=== PATIENT | male | born 1990 | race Caucasian/White ===

== ENCOUNTER → 2017-05-11 | Outpatient (REF) ==
--- NOTE | 2017-05-11 10:19 | RADIOLOGY IMAGING REPORT ---
FAC[place] [facility] [place]IENT NAME: Mason aGn : 1990 MR: [id number] V: [id number] EXAM DATE: ORDERING PHYSICIAN: NNEKA DE LA O TECHNOLOGIST: Location[place] [facility] [place] Patient: Mason Gan : 1990 Visit/Account:[id number] Date of Sevice: 05/11/2017 CHEST SINGLE AP INDICATION: Workplace physical COMPARISON: 07/28/2014 FINDINGS: Heart size within normal limits. There is no focal infiltrate or lobar consolidation. There is no pneumothorax or pleural effusion. IMPRESSION: 1. No acute cardiopulmonary process. Report Dictated By: Flex Arauz at 05/11/2017 10:14 AM Report E-Signed By: Flex Arauz at 05/11/2017 10:15 AM WSN:[id number]
== END ==
LOC: RAD 09:08
PROVIDERS: ATTEND Physician Assistant Medical
DX: Z02.9 Encounter for administrative examinations, unspecified (principal)
CPT/HCPCS: 71045